=== PATIENT | male | born 1990 | race Caucasian/White ===

== ENCOUNTER 2018-01-17 23:05 | Emergency (ER) | payer OTHER ==
[~2018-01-17] VITALS: Ht 175.3 cm; Wt 65.9 kg
[~2018-01-17 23:05] MED LIST: INSLAN SQ; NOVOLOG; TNFMISC
[2018-01-17 23:22] LABS: GLUCOSE,POINT OF CARE 77 MG/DL (70-110)
[2018-01-17] MEDS ORDERED: INSLAN SQ (23:22)
[2018-01-17 23:58] LABS: BASOPHILS % (AUTO) 1.1 % (0.0-2.0); EOSINOPHILS % (AUTO) 1.7 % (1.0-6.0); HEMOGLOBIN 12.4 g/dL (13.5-17.5); LYMPHOCYTES # (AUTO) 3.1 K/uL (1.0-4.8); LYMPHOCYTES % (AUTO) 33.5 % (22.0-44.0); MEAN CORPUSCULAR HGB CONC 34.5 G/dL (31.0-37.0); MEAN CORPUSCULAR VOLUME 87 fL (80-100); MONOCYTES # (AUTO) 0.7 K/uL (0.1-1.0); MONOCYTES % (AUTO) 8.1 % (2.0-9.0); NEUTROPHILS # (AUTO) 5.1 K/uL (1.8-7.7); NEUTROPHILS % (AUTO) 55.6 % (40.0-70.0); PLATELET COUNT (AUTO) 357 K/uL (150-450); RED BLOOD CELL COUNT(AUTO) 4.14 MIL/uL (4.50-5.90); RED CELL DISTRIBUTION WIDTH 14.3 % (11.5-14.5)
[2018-01-18 00:08] LABS: GLUCOSE,POINT OF CARE 197 MG/DL (70-110)
[2018-01-18 00:11] LABS: ANION GAP 4 mmol/L (8-16); CALCIUM, TOTAL 8.9 mg/dL (8.8-10.5); CARBON DIOXIDE 34 mmol/L (22-29); CHLORIDE 105 mmol/L (98-107); CREATININE 0.61 mg/dL (0.60-1.30); GLOMERULAR FILTR. RATE CALC > 60 mL/min (>60); GLUCOSE,RANDOM 131 mg/dL (70-110); POTASSIUM 4.1 mmol/L (3.5-5.1); SODIUM SERUM 143 mmol/L (136-145); UREA NITROGEN, BLOOD 12 mg/dL (7-18)
[2018-01-18] MEDS ORDERED: BACITRACIN 0.9 GM PACKET OINTMENT TP ONE (00:15)
[2018-01-18] MEDS ORDERED: PERTUSS(ACELL),DIPH,TET VAC/PF 0.5 ML VIAL IM ONE (00:15)
[2018-01-18 00:17] LABS: ALANINE AMINOTRANSFERASE 113 U/L (12-78); ALBUMIN 3.5 g/dL (3.4-5.0); ALKALINE PHOSPHATASE 127 U/L (46-116); ASPARTATE AMINOTRANSFERASE 87 U/L (15-37); BILIRUBIN,TOTAL 0.7 mg/dL (0.1-1.0); TOTAL PROTEIN, SERUM 7.2 g/dL (6.4-8.2)
[2018-01-18 02:22] VITALS: BP 123/79
== END 2018-01-18 02:25 | disposition home or self-care (01) ==
LOC: EMS 23:05
DX: F19.10 Other psychoactive substance abuse, uncomplicated (principal); F15.10 Other stimulant abuse, uncomplicated; F11.10 Opioid abuse, uncomplicated; B19.20 Unspecified viral hepatitis C without hepatic coma; E11.649 Type 2 diabetes mellitus with hypoglycemia without coma; Z79.4 Long term (current) use of insulin
CPT/HCPCS: 80053; 82962; 85025; 90471; 90715; 99284; G0480

== ENCOUNTER 2018-01-19 13:27 | Emergency (ER) | payer OTHER ==
[~2018-01-19] VITALS: Ht 175.3 cm; Wt 68.0 kg
[~2018-01-19 13:27] MED LIST changes: -NOVOLOG; -TNFMISC
[2018-01-19] MEDS ORDERED: SODIUM CHLORIDE 0.9% 1,000 ML IV ONE ×2 (14:15→15:00)
[2018-01-19 14:19] LABS: BASOPHILS % (AUTO) 1.3 % (0.0-2.0); EOSINOPHILS % (AUTO) 0.7 % (1.0-6.0); HEMATOCRIT 35.9 % (41-53); HEMOGLOBIN 12.1 g/dL (13.5-17.5); LYMPHOCYTES # (AUTO) 1.6 K/uL (1.0-4.8); LYMPHOCYTES % (AUTO) 19.3 % (22.0-44.0); MEAN CORPUSCULAR HGB CONC 33.8 G/dL (31.0-37.0); MEAN CORPUSCULAR VOLUME 89 fL (80-100); MONOCYTES # (AUTO) 0.7 K/uL (0.1-1.0); NEUTROPHILS # (AUTO) 5.8 K/uL (1.8-7.7); NEUTROPHILS % (AUTO) 70.7 % (40.0-70.0); PLATELET COUNT (AUTO) 305 K/uL (150-450); RED BLOOD CELL COUNT(AUTO) 4.04 MIL/uL (4.50-5.90); RED CELL DISTRIBUTION WIDTH 14.4 % (11.5-14.5)
[2018-01-19 14:43] LABS: ALANINE AMINOTRANSFERASE 128 U/L (12-78); ALBUMIN 3.5 g/dL (3.4-5.0); ALKALINE PHOSPHATASE 126 U/L (46-116); ANION GAP 14 mmol/L (8-16); ASPARTATE AMINOTRANSFERASE 82 U/L (15-37); BILIRUBIN,TOTAL 1.6 mg/dL (0.1-1.0); CALCIUM, TOTAL 9.1 mg/dL (8.8-10.5); CARBON DIOXIDE 24 mmol/L (22-29); CHLORIDE 97 mmol/L (98-107); GLOMERULAR FILTR. RATE CALC > 60 mL/min (>60); LIPASE 35 U/L (73-393); POTASSIUM 4.9 mmol/L (3.5-5.1); SODIUM SERUM 135 mmol/L (136-145); TOTAL PROTEIN, SERUM 6.8 g/dL (6.4-8.2); UREA NITROGEN, BLOOD 22 mg/dL (7-18)
[2018-01-19 14:46] LABS: GLUCOSE,RANDOM 481 mg/dL (70-110)
[2018-01-19 14:54] LABS: OSMOLALITY 304 mOS/kg (270-310)
[2018-01-19] MEDS ORDERED: INSULIN REGULAR, HUMAN 100 UNITS/ML IVP ONE (15:00)
[2018-01-19 15:57] LABS: GLUCOSE,POINT OF CARE 291 MG/DL (70-110)
[2018-01-19 16:33] LABS: AMPHET/METH SCREEN,URINE POSITIVE (NEGATIVE); BARBITURATE SCREEN, URINE NEGATIVE (NEGATIVE); BENZODIAZEPINES SCREEN,URINE NEGATIVE (NEGATIVE); CANNABINOID SCREEN,URINE NEGATIVE (NEGATIVE); COCAINE SCREEN,URINE NEGATIVE (NEGATIVE); METHADONE SCREEN, URINE NEGATIVE (NEGATIVE); OPIATE SCREEN,URINE POSITIVE (NEGATIVE)
[2018-01-19 16:34] LABS: PHENCYCLIDINE SCREEN,URINE NEGATIVE (NEGATIVE)
[2018-01-19 16:35] LABS: APPEARANCE,URINE CLEAR (CLEAR); BILIRUBIN,URINE NEGATIVE (NEGATIVE); GLUCOSE, URINE (UA) >=1000 mg/dL (NEGATIVE); KETONES,URINE >=80 mg/dL (NEGATIVE); LEUKOCYTE ESTERASE ,URINE NEGATIVE (NEGATIVE); NITRATE,URINE NEGATIVE (NEGATIVE); OCCULT BLOOD,URINE NEGATIVE (NEGATIVE); PROTEIN,URINE NEGATIVE (NEGATIVE); UROBILINOGEN,URINE 0.2 mg/dL (<=1.0)
[2018-01-19 16:52] LABS: BACTERIA,URINE None Seen /HPF (None Seen); RBC,URINE None Seen /HPF (0-2); SQUAMOUS EPITHELIAL CELL,UR Rare /LPF (None Seen); WBC,URINE None Seen /HPF (0-5)
[2018-01-19 19:11] VITALS: BP 128/67
[2018-01-19 19:42] LABS: GLUCOSE,POINT OF CARE 233 MG/DL (70-110)
== END 2018-01-19 19:12 | disposition home or self-care (01) ==
LOC: EMS 13:29
DX: E10.65 Type 1 diabetes mellitus with hyperglycemia (principal); R81 Glycosuria; F11.90 Opioid use, unspecified, uncomplicated; F15.90 Other stimulant use, unspecified, uncomplicated; Z88.8 Allergy status to other drugs, medicaments and biological substances
CPT/HCPCS: 36415; 71045; 80053; 80307; 81001; 82009; 82948; 82962; 83690; 83735; 83930; 85025; 93005; 96361; 96374; 99285; G0480; J1815; J7030

== ENCOUNTER 2018-01-20 07:40 | Inpatient (IN) | payer OTHER ==
[~2018-01-20] VITALS: Ht 154.9 cm; Wt 65.6 kg
[2018-01-20 08:27] LABS: BASOPHILS % (AUTO) 0.7 % (0.0-2.0); EOSINOPHILS % (AUTO) 0 % (1.0-6.0); HEMATOCRIT 40.2 % (41-53); HEMOGLOBIN 13.3 g/dL (13.5-17.5); LYMPHOCYTES # (AUTO) 0.6 K/uL (1.0-4.8); LYMPHOCYTES % (AUTO) 6.7 % (22.0-44.0); MEAN CORPUSCULAR HEMOGLOBIN 30.3 pg (26.0-34.0); MEAN CORPUSCULAR HGB CONC 33.1 G/dL (31.0-37.0); MEAN CORPUSCULAR VOLUME 92 fL (80-100); MONOCYTES # (AUTO) 0.2 K/uL (0.1-1.0); MONOCYTES % (AUTO) 2.5 % (2.0-9.0); NEUTROPHILS # (AUTO) 8.3 K/uL (1.8-7.7); PLATELET COUNT (AUTO) 433 K/uL (150-450); RED CELL DISTRIBUTION WIDTH 15.3 % (11.5-14.5)
[2018-01-20 08:28] LABS: NEUTROPHILS % (AUTO) 90.1 % (40.0-70.0)
[2018-01-20 08:46] LABS: ALANINE AMINOTRANSFERASE 143 U/L (12-78); ALBUMIN 3.8 g/dL (3.4-5.0); ALKALINE PHOSPHATASE 156 U/L (46-116); ANION GAP 28 mmol/L (8-16); ASPARTATE AMINOTRANSFERASE 74 U/L (15-37); BILIRUBIN,TOTAL 1.1 mg/dL (0.1-1.0); CALCIUM, TOTAL 8.9 mg/dL (8.8-10.5); CARBON DIOXIDE 11 mmol/L (22-29); CHLORIDE 98 mmol/L (98-107); CREATININE 1.11 mg/dL (0.60-1.30); GLOMERULAR FILTR. RATE CALC > 60 mL/min (>60); LIPASE 31 U/L (73-393); POTASSIUM 5.3 mmol/L (3.5-5.1); SODIUM SERUM 137 mmol/L (136-145); TOTAL PROTEIN, SERUM 7.7 g/dL (6.4-8.2); UREA NITROGEN, BLOOD 24 mg/dL (7-18)
[2018-01-20 08:54] LABS: GLUCOSE,RANDOM 429 mg/dL (70-110)
[2018-01-20 09:06] LABS: ACETONE,BLOOD 1:16 (NEGATIVE)
[2018-01-20] MEDS ORDERED: INSULIN REGULAR, HUMAN 100 UNITS/ML SQ ONE ×2 (09:30→22:45)
[2018-01-20 10:48] LABS: GLUCOSE,POINT OF CARE 356 MG/DL (70-110)
[2018-01-20] MEDS ORDERED: 0.9% SODIUM CHLORIDE 10 ML SYRINGE IVP PRN (11:45)
[2018-01-20] MEDS ORDERED: ACETAMINOPHEN 325 MG TABLET PO PRN ×2 (11:45→23:00)
[2018-01-20] MEDS ORDERED: SODIUM CHLORIDE 0.9% 2,000 ML IV ONE (11:45)
[2018-01-20] MEDS ORDERED: ONDANSETRON HCL 4 MG/2 ML VIAL IVP PRN ×2 (11:45→23:00)
[2018-01-20] MEDS ORDERED: INSULIN REGULAR, HUMAN 100 UNITS/ML IVP ONE (11:45)
[2018-01-20 11:54] LABS: ABG A-A DIFF O2 6.3 mmHg (10-20.0); ABG BASE EXCESS -20.6 mmol/L (-2.0-3.0); ABG CARBOXYHEMOGLOBIN 1.3 % (0.0-3.0); ABG HCO3 11.2 mmol/L (22.0-26.0); ABG METHEMOGLOBIN 0.7 % (0.0-1.5); ABG OXYGEN CONTENT 18.1 mL/dL (15.0-23.0); ABG OXYGEN SATURATION 98.5 % (95.0-98.0); ABG OXYHEMOGLOBIN 96.5 % (94.0-100.0); ABG PCO2 15 mmHg (35-45); ABG PH 7.263 (7.350-7.450); ABG TOTAL HEMOGLOBIN 13.2 G/dL (12.0-18.0); O2 DEVICE,BLOOD GAS ROOM AIR (ROOM AIR); PO2, ARTERIAL BG 126.1 mmHg (80.0-100.0); SITE, BLOOD GAS RT RADIAL; SOURCE, BLOOD GAS ARTERIAL; TEMPERATURE, FAHRENHEIT, BG 98.6 FAHREN (96.0-98.6)
[2018-01-20] MEDS ORDERED: DEXTROSE 5%-WATER 1,000 ML IV SCH (13:12)
[2018-01-20] MEDS ORDERED: SODIUM CHLORIDE 0.9% 1,000 ML IV ONE (13:15)
[2018-01-20] MEDS ORDERED: DEXTROSE 50%-WATER 25 GM/50 ML SYRINGE IVP PRN ×3 (13:15→22:45)
[2018-01-20 13:38] LABS: GLUCOSE,POINT OF CARE 227 MG/DL (70-110)
[2018-01-20] MEDS ORDERED: SODIUM BICARBONATE [ADULT] 8.4% 50 MEQ/50 ML SYRINGE IVP ONE (13:45)
[2018-01-20 14:39] LABS: GLUCOSE,POINT OF CARE 181 MG/DL (70-110)
[2018-01-20] MEDS: INSULIN REGULAR, HUMAN 100 UNITS in SODIUM CHLORIDE 0.9% 99 ML IV PRN ×4 (14:53→14:55)
[2018-01-20 16:00] VITALS: BP 126/72
[2018-01-20] MEDS ORDERED: POTASSIUM CHL 20 MEQ/0.45% NS 1,000 ML IV PRN (16:00)
[2018-01-20] MEDS ORDERED: DEXTROSE 5%-0.45% SODIUM CHL 1,000 ML IV PRN (16:00)
[2018-01-20] MEDS ORDERED: INSULIN REGULAR, HUMAN 100 UNITS in SODIUM CHLORIDE 0.9% 99 ML IV PRN ×2 (16:00)
[2018-01-20] MEDS ORDERED: INSULIN REGULAR, HUMAN 100 UNITS/ML IVP PRN (16:00)
[2018-01-20] MEDS ORDERED: POTASSIUM CHLORIDE 40 MEQ in SODIUM CHLORIDE 0.45% 1,000 ML IV PRN (16:00)
[2018-01-20] MEDS ORDERED: SODIUM CHLORIDE 0.45% 1,000 ML IV PRN (16:00)
[2018-01-20 16:35] LABS: ANION GAP 18 mmol/L (8-16); CARBON DIOXIDE 14 mmol/L (22-29); CHLORIDE 104 mmol/L (98-107); CREATININE 0.85 mg/dL (0.60-1.30); GLOMERULAR FILTR. RATE CALC > 60 mL/min (>60); GLUCOSE,RANDOM 180 mg/dL (70-110); POTASSIUM 3.8 mmol/L (3.5-5.1); SODIUM SERUM 136 mmol/L (136-145); UREA NITROGEN, BLOOD 21 mg/dL (7-18)
[2018-01-20] MEDS ORDERED: TraMADol HCL 50 MG TABLET PO PRN (18:15)
[2018-01-20 20:00] VITALS: BP 117/53
[2018-01-20 20:07] LABS: GLUCOSE,POINT OF CARE 146 MG/DL (70-110)
[2018-01-20 20:07] LABS: GLUCOSE,POINT OF CARE 256 MG/DL (70-110)
[2018-01-20 20:07] LABS: GLUCOSE,POINT OF CARE 226 MG/DL (70-110)
[2018-01-20 20:07] LABS: GLUCOSE,POINT OF CARE 153 MG/DL (70-110)
[2018-01-20 20:42] LABS: BASOPHILS % (AUTO) 0.7 % (0.0-2.0); EOSINOPHILS % (AUTO) 0 % (1.0-6.0); HEMATOCRIT 31.7 % (41-53); LYMPHOCYTES # (AUTO) 1.9 K/uL (1.0-4.8); LYMPHOCYTES % (AUTO) 18.9 % (22.0-44.0); MEAN CORPUSCULAR HEMOGLOBIN 30.3 pg (26.0-34.0); MEAN CORPUSCULAR HGB CONC 34.8 G/dL (31.0-37.0); MEAN CORPUSCULAR VOLUME 87 fL (80-100); MONOCYTES # (AUTO) 0.8 K/uL (0.1-1.0); MONOCYTES % (AUTO) 7.8 % (2.0-9.0); NEUTROPHILS # (AUTO) 7.3 K/uL (1.8-7.7); NEUTROPHILS % (AUTO) 72.6 % (40.0-70.0); PLATELET COUNT (AUTO) 360 K/uL (150-450); RED BLOOD CELL COUNT(AUTO) 3.64 MIL/uL (4.50-5.90); RED CELL DISTRIBUTION WIDTH 14.7 % (11.5-14.5)
[2018-01-20 20:52] LABS: ACETONE,BLOOD NEGATIVE (NEGATIVE)
[2018-01-20 21:03] LABS: ANION GAP 11 mmol/L (8-16); CALCIUM, TOTAL 7.4 mg/dL (8.8-10.5); CARBON DIOXIDE 20 mmol/L (22-29); CHLORIDE 105 mmol/L (98-107); CREATININE 1.04 mg/dL (0.60-1.30); GLOMERULAR FILTR. RATE CALC > 60 mL/min (>60); GLUCOSE,RANDOM 235 mg/dL (70-110); POTASSIUM 3.8 mmol/L (3.5-5.1); SODIUM SERUM 136 mmol/L (136-145); UREA NITROGEN, BLOOD 17 mg/dL (7-18)
[2018-01-20] MEDS ORDERED: INSULIN GLARGINE,HUM.REC.ANLOG 100 UNITS/ML SQ ONE (22:45)
[2018-01-20] MEDS ORDERED: BISACODYL 10 MG RECTAL RECTAL SUPPOSITORY PR PRN (23:00)
[2018-01-20] MEDS ORDERED: IPRATROPIUM BROMIDE 0.5 MG/2.5 ML NEB SOLUTION NEB PRN (23:00)
[2018-01-20] MEDS ORDERED: MORPHINE SULFATE 4 MG/ML SYRINGE IVP PRN (23:00)
[2018-01-20] MEDS ORDERED: MAGNESIUM HYDROXIDE SUSPENSION 30 ML UDCUP PO PRN (23:00)
[2018-01-20] MEDS ORDERED: ZOLPIDEM TARTRATE 5 MG TABLET PO PRN (23:00)
[2018-01-20] MEDS ORDERED: HYDROCODONE/ACETAMINOPHEN 5-325 MG TABLET PO PRN (23:00)
[2018-01-20] MEDS ORDERED: ALBUTEROL SULFATE 2.5 MG/0.5 ML NEB SOLUTION NEB PRN (23:00)
[2018-01-21] VITALS: BP 114/49
[2018-01-21] MEDS: HEPARIN SODIUM,PORCINE 5,000 UNITS/ML VIAL SQ SCH ×3 (00:06→16:54)
[2018-01-21] MEDS: INSULIN LISPRO 100 UNITS/ML SQ PRN ×5 (00:07→17:14)
[2018-01-21] MEDS ORDERED: PNEUMOCOCCAL VACCINE POLYVALENT 0.5 ML VIAL [PPSV23] IM ONE (00:15)
[2018-01-21 01:13] LABS: GLUCOSE,POINT OF CARE 183 MG/DL (70-110)
[2018-01-21 01:13] LABS: GLUCOSE,POINT OF CARE 160 MG/DL (70-110)
[2018-01-21 01:13] LABS: GLUCOSE,POINT OF CARE 142 MG/DL (70-110)
[2018-01-21 01:13] LABS: GLUCOSE,POINT OF CARE 189 MG/DL (70-110)
[2018-01-21 04:00] VITALS: BP 112/56
[2018-01-21 05:25] LABS: ALANINE AMINOTRANSFERASE 63 U/L (12-78); ALBUMIN 2.5 g/dL (3.4-5.0); ALKALINE PHOSPHATASE 93 U/L (46-116); ANION GAP 7 mmol/L (8-16); ASPARTATE AMINOTRANSFERASE 34 U/L (15-37); BASOPHILS % (AUTO) 0.6 % (0.0-2.0); BILIRUBIN,TOTAL 0.7 mg/dL (0.1-1.0); CALCIUM, TOTAL 7.4 mg/dL (8.8-10.5); CARBON DIOXIDE 24 mmol/L (22-29); CHLORIDE 103 mmol/L (98-107); CREATININE 0.86 mg/dL (0.60-1.30); EOSINOPHILS % (AUTO) 0.1 % (1.0-6.0); GLOMERULAR FILTR. RATE CALC > 60 mL/min (>60); GLUCOSE,RANDOM 237 mg/dL (70-110); HEMATOCRIT 29.5 % (41-53); HEMOGLOBIN 10.3 g/dL (13.5-17.5); LYMPHOCYTES % (AUTO) 24.4 % (22.0-44.0); MEAN CORPUSCULAR HEMOGLOBIN 30.6 pg (26.0-34.0); MEAN CORPUSCULAR VOLUME 87 fL (80-100); MONOCYTES # (AUTO) 0.6 K/uL (0.1-1.0); MONOCYTES % (AUTO) 7.2 % (2.0-9.0); NEUTROPHILS # (AUTO) 5.6 K/uL (1.8-7.7); NEUTROPHILS % (AUTO) 67.7 % (40.0-70.0); PLATELET COUNT (AUTO) 318 K/uL (150-450); POTASSIUM 3.7 mmol/L (3.5-5.1); RED BLOOD CELL COUNT(AUTO) 3.39 MIL/uL (4.50-5.90); SODIUM SERUM 134 mmol/L (136-145); TOTAL PROTEIN, SERUM 5.2 g/dL (6.4-8.2); UREA NITROGEN, BLOOD 14 mg/dL (7-18)
[2018-01-21 06:43] LABS: GLUCOSE,POINT OF CARE 73 MG/DL (70-110)
[2018-01-21 06:43] LABS: GLUCOSE,POINT OF CARE 240 MG/DL (70-110)
[2018-01-21 08:00] VITALS: BP 129/52
[2018-01-21] MEDS: DOCUSATE SODIUM 100 MG CAPSULE PO SCH ×2 (08:06→08:17)
[2018-01-21 08:23] LABS: GLUCOSE,POINT OF CARE 196 MG/DL (70-110)
[2018-01-21] MEDS ORDERED: INSULIN GLARGINE,HUM.REC.ANLOG 100 UNITS/ML SQ SCH (09:00)
[2018-01-21] MEDS ORDERED: PANTOPRAZOLE SODIUM 40 MG/VIAL IVP SCH (09:00)
[2018-01-21 12:00] VITALS: BP 114/67
[2018-01-21] MEDS ORDERED: MAGNESIUM SULFATE 2 GM in DEXTROSE 5%-WATER 50 ML IV ONE (12:45)
[2018-01-21] MEDS ORDERED: POTASSIUM PHOS,M-BASIC-D-BASIC 30 MMOL in DEXTROSE 5%-WATER 250 ML IV ONE (12:45)
[2018-01-21] MEDS ORDERED: SODIUM CHLORIDE 0.9% 100 ML ONE (13:52)
[2018-01-21] MEDS ORDERED: INSLAN SQ (15:20)
[2018-01-21] MEDS ORDERED: INSU100V SQ (15:28)
[2018-01-21] MEDS ORDERED: NAPH1PAC2 PO (15:45)
[2018-01-21 16:00] VITALS: BP 122/78
[2018-01-21 17:58] LABS: GLUCOSE,POINT OF CARE 129 MG/DL (70-110)
[2018-01-21 17:58] LABS: GLUCOSE,POINT OF CARE 241 MG/DL (70-110)
== END 2018-01-21 17:20 | disposition home or self-care (01) | DRG 420 ==
LOC: EMS 07:42 → ICU 14:20
PROVIDERS: ADMIT Hospitalist; ATTEND Hospitalist
DX: E10.10 Type 1 diabetes mellitus with ketoacidosis without coma (principal); E87.5 Hyperkalemia; B19.20 Unspecified viral hepatitis C without hepatic coma; E86.0 Dehydration; F11.10 Opioid abuse, uncomplicated; F15.10 Other stimulant abuse, uncomplicated; Z59.0 Homelessness; Z79.4 Long term (current) use of insulin; Z87.891 Personal history of nicotine dependence; Z88.8 Allergy status to other drugs, medicaments and biological substances; Z71.51 Drug abuse counseling and surveillance of drug abuser
CPT/HCPCS: 36556; 82805; 83735; 84100; 87081; 96361; 96374; 96375; 96376; 99291; C9113; G0480; J1644; J1815; J2405; J3475; J3480; J3490; J7030; J7050; J7060

== ENCOUNTER 2018-03-10 21:02 | Emergency (ER) | payer OTHER ==
[~2018-03-10] VITALS: Ht 175.3 cm; Wt 63.6 kg
[~2018-03-10 21:02] MED LIST changes: +INSU100V SQ; +NAPH1PAC2 PO
[2018-03-10 21:49] LABS: GLUCOSE,POINT OF CARE 146 MG/DL (70-110)
[2018-03-10] MEDS ORDERED: INSU100I26 SQ (21:51)
[2018-03-11 00:30] VITALS: BP 141/89
[2018-03-11] MEDS ORDERED: IBUPROFEN 600 MG TABLET PO ONE (00:45)
[2018-03-11] MEDS ORDERED: CLINDAMYCIN HCL 150 MG CAPSULE PO ONE (00:45)
== END 2018-03-11 01:05 | disposition home or self-care (01) ==
LOC: EMS 21:02
DX: L03.211 Cellulitis of face (principal); M25.451 Effusion, right hip; E11.9 Type 2 diabetes mellitus without complications; F11.90 Opioid use, unspecified, uncomplicated; F15.90 Other stimulant use, unspecified, uncomplicated; Z88.2 Allergy status to sulfonamides; Z88.1 Allergy status to other antibiotic agents; Z88.8 Allergy status to other drugs, medicaments and biological substances
CPT/HCPCS: 99283

== ENCOUNTER 2018-11-05 19:58 | Emergency (ER) | payer MEDICAID, OTHER ==
[~2018-11-05] VITALS: Ht 177.8 cm; Wt 77.3 kg
[~2018-11-05 19:58] MED LIST changes: -INSLAN SQ; +INSU100I26 SQ; -NAPH1PAC2 PO
[2018-11-05 20:28] LABS: BASOPHILS % (AUTO) 0.9 % (0.0-2.0); EOSINOPHILS % (AUTO) 2.2 % (1.0-6.0); HEMATOCRIT 37.9 % (41-53); LYMPHOCYTES # (AUTO) 5.6 K/uL (1.0-4.8); LYMPHOCYTES % (AUTO) 55.3 % (22.0-44.0); MEAN CORPUSCULAR HEMOGLOBIN 28.5 pg (26.0-34.0); MEAN CORPUSCULAR HGB CONC 31.6 G/dL (31.0-37.0); MEAN CORPUSCULAR VOLUME 90 fL (80-100); MONOCYTES % (AUTO) 10.2 % (2.0-9.0); NEUTROPHILS # (AUTO) 3.2 K/uL (1.8-7.7); NEUTROPHILS % (AUTO) 31.4 % (40.0-70.0); PLATELET COUNT (AUTO) 302 K/uL (150-450); RED BLOOD CELL COUNT(AUTO) 4.21 MIL/uL (4.50-5.90); RED CELL DISTRIBUTION WIDTH 14.4 % (11.5-14.5)
[2018-11-05 20:41] LABS: ALANINE AMINOTRANSFERASE 109 U/L (12-78); ALBUMIN 3.2 g/dL (3.4-5.0); ALKALINE PHOSPHATASE 105 U/L (46-116); ANION GAP 8 mmol/L (8-16); ASPARTATE AMINOTRANSFERASE 67 U/L (15-37); BILIRUBIN,TOTAL 0.5 mg/dL (0.1-1.0); CALCIUM, TOTAL 8.8 mg/dL (8.8-10.5); CARBON DIOXIDE 30 mmol/L (22-29); CHLORIDE 102 mmol/L (98-107); CREATININE 0.81 mg/dL (0.60-1.30); GLOMERULAR FILTR. RATE CALC > 60 mL/min (>60); GLUCOSE,RANDOM 154 mg/dL (70-110); SODIUM SERUM 140 mmol/L (136-145); TOTAL PROTEIN, SERUM 6.7 g/dL (6.4-8.2); UREA NITROGEN, BLOOD 7 mg/dL (7-18)
[2018-11-05 20:43] LABS: ACETAMINOPHEN < 2 mcg/mL (10-30)
[2018-11-05 20:47] LABS: SALICYLATE < 2.8 mg/dL (2.8-20.0)
[2018-11-05 20:59] LABS: GLUCOSE,POINT OF CARE 46 MG/DL (70-110)
[2018-11-05] MEDS ORDERED: DEXTROSE 50%-WATER 25 GM/50 ML SYRINGE IVP ONE (21:00)
[2018-11-05] MEDS ORDERED: POTASSIUM CHLORIDE 20 MEQ ER TABLET PO ONE (21:30)
[2018-11-05 21:44] LABS: GLUCOSE,POINT OF CARE 68 MG/DL (70-110)
[2018-11-05 22:38] LABS: GLUCOSE,POINT OF CARE 148 MG/DL (70-110)
[2018-11-05 23:49] LABS: GLUCOSE,POINT OF CARE 151 MG/DL (70-110)
[2018-11-05 23:52] LABS: AMPHET/METH SCREEN,URINE POSITIVE (NEGATIVE); BARBITURATE SCREEN, URINE NEGATIVE (NEGATIVE); BENZODIAZEPINES SCREEN,URINE NEGATIVE (NEGATIVE); CANNABINOID SCREEN,URINE NEGATIVE (NEGATIVE); COCAINE SCREEN,URINE NEGATIVE (NEGATIVE); METHADONE SCREEN, URINE NEGATIVE (NEGATIVE); OPIATE SCREEN,URINE POSITIVE (NEGATIVE); PHENCYCLIDINE SCREEN,URINE NEGATIVE (NEGATIVE)
[2018-11-06] VITALS: BP 127/81
== END 2018-11-06 00:43 | disposition home or self-care (01) ==
LOC: EMS 19:59
DX: E11.649 Type 2 diabetes mellitus with hypoglycemia without coma (principal); F19.10 Other psychoactive substance abuse, uncomplicated; F11.90 Opioid use, unspecified, uncomplicated; Z79.4 Long term (current) use of insulin; Z88.1 Allergy status to other antibiotic agents; Z88.2 Allergy status to sulfonamides; Z88.8 Allergy status to other drugs, medicaments and biological substances
CPT/HCPCS: 36415; 80053; 80307; 82962; 85025; 93005; 96374; 99285; G0480; G0481

== ENCOUNTER 2018-12-30 08:57 | Emergency (ER) | payer MEDICAID ==
[~2018-12-30] VITALS: Ht 175.3 cm; Wt 75.0 kg
[2018-12-30 09:55] LABS: EOSINOPHILS % (AUTO) 1.8 % (1.0-6.0); HEMATOCRIT 39.8 % (41-53); HEMOGLOBIN 13.2 g/dL (13.5-17.5); LYMPHOCYTES # (AUTO) 3.5 K/uL (1.0-4.8); MEAN CORPUSCULAR HEMOGLOBIN 27.5 pg (26.0-34.0); MEAN CORPUSCULAR HGB CONC 33.1 G/dL (31.0-37.0); MEAN CORPUSCULAR VOLUME 83 fL (80-100); MONOCYTES # (AUTO) 0.4 K/uL (0.1-1.0); MONOCYTES % (AUTO) 5.1 % (2.0-9.0); NEUTROPHILS # (AUTO) 3.2 K/uL (1.8-7.7); NEUTROPHILS % (AUTO) 44.1 % (40.0-70.0)
[2018-12-30 10:16] LABS: ALANINE AMINOTRANSFERASE 58 U/L (12-78); ALBUMIN 3.9 g/dL (3.4-5.0); ALKALINE PHOSPHATASE 142 U/L (46-116); ANION GAP 12 mmol/L (8-16); ASPARTATE AMINOTRANSFERASE 42 U/L (15-37); BILIRUBIN,TOTAL 0.6 mg/dL (0.1-1.0); CALCIUM, TOTAL 9.7 mg/dL (8.8-10.5); CARBON DIOXIDE 27 mmol/L (22-29); CHLORIDE 102 mmol/L (98-107); CREATININE 0.69 mg/dL (0.60-1.30); GLOMERULAR FILTR. RATE CALC > 60 mL/min (>60); POTASSIUM 3.9 mmol/L (3.5-5.1); SODIUM SERUM 141 mmol/L (136-145); TOTAL PROTEIN, SERUM 7.7 g/dL (6.4-8.2); UREA NITROGEN, BLOOD 9 mg/dL (7-18)
[2018-12-30 10:32] LABS: GLUCOSE,RANDOM 48 mg/dL (70-110)
[2018-12-30 10:34] LABS: GLUCOSE,POINT OF CARE 50 MG/DL (70-110)
[2018-12-30 10:45] LABS: PLATELET COUNT (AUTO) 110 K/uL (150-450)
[2018-12-30 12:22] LABS: AMPHET/METH SCREEN,URINE POSITIVE (NEGATIVE); BARBITURATE SCREEN, URINE NEGATIVE (NEGATIVE); BENZODIAZEPINES SCREEN,URINE NEGATIVE (NEGATIVE); CANNABINOID SCREEN,URINE NEGATIVE (NEGATIVE); COCAINE SCREEN,URINE NEGATIVE (NEGATIVE); METHADONE SCREEN, URINE NEGATIVE (NEGATIVE); OPIATE SCREEN,URINE POSITIVE (NEGATIVE)
[2018-12-30 12:26] LABS: PHENCYCLIDINE SCREEN,URINE NEGATIVE (NEGATIVE)
[2018-12-30 12:41] VITALS: BP 142/84
[2018-12-30 12:44] LABS: GLUCOSE,POINT OF CARE 201 MG/DL (70-110)
== END 2018-12-30 13:13 | disposition home or self-care (01) ==
LOC: EMS 08:57
DX: F19.10 Other psychoactive substance abuse, uncomplicated (principal); F15.10 Other stimulant abuse, uncomplicated; F11.10 Opioid abuse, uncomplicated; E11.649 Type 2 diabetes mellitus with hypoglycemia without coma; Z88.1 Allergy status to other antibiotic agents; Z88.8 Allergy status to other drugs, medicaments and biological substances
CPT/HCPCS: 36415; 80053; 80307; 82948; 82962; 85025; 99285; G0480